=== PATIENT | female | born 1950 | race Caucasian/White ===

== ENCOUNTER 2019-07-12 21:28 | Inpatient (IN) ==
[2019-07-12] MEDS ORDERED: DOCUSATE SODIUM 100 MG CAPSULE PO PRN (23:24)
[2019-07-12] MEDS ORDERED: ONDANSETRON 4 MG/2 ML VIAL IV PRN (23:24)
[2019-07-12] MEDS ORDERED: ACETAMINOPHEN 325 MG TABLET PO PRN (23:24)
[2019-07-12] MEDS: SODIUM CHLORIDE 0.9% 1,000 ML IV SCH (23:58)
[2019-07-13] MEDS ORDERED: GLUCAGON 1 MG VIAL IM PRN
[2019-07-13] MEDS ORDERED: DEXTROSE 50% 25 GM/50 ML VIAL IV PRN
[2019-07-13] MEDS: INSULIN LISPRO 100 UNIT/ML SUBCUT SCH ×4 (01:12→18:47)
[2019-07-13 05:44] LABS: Basophils # 0.1 10*3/uL (0.0-0.2); Basophils % 0.3 % (0.0-0.8); Eosinophils # 0.1 10*3/uL (0.0-0.87); Eosinophils % 0.6 % (0.00-10.9); Hematocrit 32.6 VOL% (35.7-47.0); Hemoglobin 10.3 GM/DL (12.0-16.0); Immature Granulocytes % 0.6 %; Immature Granulocytes Absolute 0.08 #; Lymphocytes # 1.8 10*3/uL (1.4-4.0); Lymphocytes % 12.4 % (21.3-54.2); Mean Corpuscular HGB Conc 31.6 GM/DL (32-36); Mean Corpuscular Volume 98.8 FL (87-102); Mean Platelet Volume 10.6 FL (9.6-12.0); Monocytes % 10.5 % (1.7-12.7); Neutrophils % 75.6 % (38.7-73.9); Platelet Count 197 T/CUMM (130-400); Red Cell Distribution Width 16.2 % (9.3-17.3); White Blood Count 14.3 T/CUMM (4-12)
[2019-07-13 06:26] LABS: Albumin 2.8 G/DL (3.4-5.0); Bilirubin,Total 0.7 MG/DL (0.2-1.0); Calcium 9.3 MG/DL (8.5-10.1); Osmolality,Calculated 289.5 MOS/KG (273-304); Total Protein 6.4 G/DL (6.4-8.3)
[2019-07-13] MEDS ORDERED: ceFAZolin 1,000 MG in SYRINGE 1 EACH IV ONE (06:43)
[2019-07-14] MEDS: INSULIN LISPRO 100 UNIT/ML SUBCUT SCH ×5 (00:58→23:59)
[2019-07-14] MEDS: SODIUM CHLORIDE 0.9% 1,000 ML IV SCH ×2 (05:04→16:02)
[2019-07-14 06:20] LABS: Basophils # 0.1 10*3/uL (0.0-0.2); Basophils % 0.4 % (0.0-0.8); Eosinophils # 0.1 10*3/uL (0.0-0.87); Eosinophils % 1.1 % (0.00-10.9); Hematocrit 28.8 VOL% (35.7-47.0); Hemoglobin 9.1 GM/DL (12.0-16.0); Immature Granulocytes % 0.5 %; Immature Granulocytes Absolute 0.06 #; Lymphocytes # 1.8 10*3/uL (1.4-4.0); Lymphocytes % 14.6 % (21.3-54.2); Mean Corpuscular HGB Conc 31.6 GM/DL (32-36); Mean Platelet Volume 10.9 FL (9.6-12.0); Monocytes % 12.9 % (1.7-12.7); Neutrophils % 70.5 % (38.7-73.9); Platelet Count 175 T/CUMM (130-400); Red Blood Count 2.91 MC/CUMM (3.8-5.5); Red Cell Distribution Width 16.1 % (9.3-17.3); White Blood Count 12.3 T/CUMM (4-12)
[2019-07-14] MEDS ORDERED: ceFAZolin 1,000 MG in SYRINGE 1 EACH IV ONE (06:30)
[2019-07-14 06:38] LABS: Calcium 8.8 MG/DL (8.5-10.1); Osmolality,Calculated 282.4 MOS/KG (273-304)
[2019-07-14] MEDS ORDERED: BACITRACIN OINT 0.9 GM PACK TOP ONE ×2 (11:32→11:47)
[2019-07-14] MEDS ORDERED: MAGNESIUM HYDROXIDE SUSP 30 ML UDCUP PO PRN (12:00)
[2019-07-14] MEDS ORDERED: BUPIVACAINE 0.5% 50 ML VIAL ONE (12:04)
[2019-07-14] MEDS ORDERED: DEXAMETHASONE 4 MG/1 ML VIAL ONE (12:04)
[2019-07-14] MEDS ORDERED: PROPOFOL 200 MG/20 ML VIAL IV ONE (12:23)
[2019-07-14] MEDS ORDERED: PHENYLEPHRINE DRIP 20 MG/250 ML PREMIX IV ONE (12:23)
[2019-07-14] MEDS ORDERED: SEVOFLURANE 1 UNIT/15 MINUTE INH ONE (12:23)
[2019-07-14] MEDS ORDERED: NEOSTIGMINE 10 MG/10 ML VIAL ONE (12:24)
[2019-07-14] MEDS ORDERED: ETOMIDATE 40 MG/20 ML VIAL IV ONE (12:24)
[2019-07-14] MEDS ORDERED: fentaNYL 100 MCG/2 ML VIAL ONE (12:24)
[2019-07-14] MEDS ORDERED: ROCURONIUM 100 MG/10 ML VIAL IV ONE (12:24)
[2019-07-14] MEDS ORDERED: GLYCOPYRROLATE 0.4 MG/2 ML VIAL ONE (12:24)
[2019-07-14] MEDS ORDERED: PHENYLEPHRINE 1 MG/10 ML SYRINGE IV ONE (12:24)
[2019-07-14] MEDS ORDERED: SODIUM CHLORIDE 0.9% 250 ML IV ONE ×2 (12:40→12:56)
[2019-07-14] MEDS ORDERED: PHENYLEPHRINE DRIP 40 MG/250 ML PREMIX IV ONE (13:01)
[2019-07-14] MEDS ORDERED: SODIUM CHLORIDE 0.9% IV PRN (13:04)
[2019-07-14] MEDS ORDERED: PHENYLEPHRINE IV PRN (13:04)
[2019-07-14 13:23] LABS: Hematocrit 25.4 VOL% (35.7-47.0)
[2019-07-14] MEDS ORDERED: ALBUMIN 25% 25 GM in PREMIX 1 EACH IV ONE (13:54)
[2019-07-14] MEDS ORDERED: ALBUMIN 25% 25 GM/100 ML VIAL IV ONE (13:59)
[2019-07-14] MEDS: HYDROmorphone 2 MG/1 ML VIAL IV PRN ×2 (15:58→20:33)
[2019-07-14] MEDS ORDERED: FUROSEMIDE 40 MG/4 ML VIAL IV PRN (17:42)
[2019-07-14] MEDS ORDERED: SODIUM CHLORIDE 0.9% 1,000 ML IV PRN (17:42)
[2019-07-14] MEDS: ceFAZolin 1,000 MG in SYRINGE 1 EACH IV SCH ×2 (18:20→23:59)
[2019-07-14] MEDS ORDERED: EPINEPHrine 1 MG/ML VIAL ONE (22:06)
[2019-07-15] MEDS: HYDROmorphone 2 MG/1 ML VIAL IV PRN ×3 (00:15→09:41)
[2019-07-15 05:08] LABS: Basophils # 0.1 10*3/uL (0.0-0.2); Basophils % 0.3 % (0.0-0.8); Hematocrit 31.4 VOL% (35.7-47.0); Hemoglobin 9.8 GM/DL (12.0-16.0); Immature Granulocytes % 0.7 %; Immature Granulocytes Absolute 0.12 #; Lymphocytes # 1.6 10*3/uL (1.4-4.0); Mean Corpuscular HGB Conc 31.2 GM/DL (32-36); Mean Corpuscular Volume 97.5 FL (87-102); Mean Platelet Volume 10.8 FL (9.6-12.0); Monocytes % 14.7 % (1.7-12.7); Neutrophils % 75.3 % (38.7-73.9); Platelet Count 186 T/CUMM (130-400); Red Blood Count 3.22 MC/CUMM (3.8-5.5); Red Cell Distribution Width 15.9 % (9.3-17.3); White Blood Count 17.6 T/CUMM (4-12)
[2019-07-15 05:31] LABS: Calcium 9.2 MG/DL (8.5-10.1); Osmolality,Calculated 294.1 MOS/KG (273-304)
[2019-07-15] MEDS: INSULIN LISPRO 100 UNIT/ML SUBCUT SCH ×3 (06:06→18:35)
[2019-07-15] MEDS: ASPIRIN 325 MG TABLET PO SCH (10:11)
[2019-07-15] MEDS: SODIUM CHLORIDE 0.9% 1,000 ML IV SCH ×2 (13:00→18:08)
[2019-07-15] MEDS: PHENYLEPHRINE DRIP 40 MG/250 ML PREMIX IV PRN (15:30)
[2019-07-15] MEDS ORDERED: DILTIAZEM CD 120 MG CAPSULE PO SCH (16:04)
[2019-07-15] MEDS ORDERED: METOPROLOL TARTRATE 5 MG/5 ML VIAL IV PRN (16:47)
[2019-07-15 18:31] LABS: CKMB % 3.9 %
[2019-07-15 18:35] LABS: Troponin I 2.2 NG/ML (0.00-0.045)
[2019-07-15] MEDS ORDERED: ENOXAPARIN 60 MG/0.6 ML SYRINGE SUBCUT ONE (19:28)
[2019-07-15 21:33] LABS: CKMB % 3.4 %
[2019-07-15 21:35] LABS: Troponin I 2.29 NG/ML (0.00-0.045)
[2019-07-15] MEDS ORDERED: NITROGLYCERIN SL 0.4 MG TABLET SL PRN (21:37)
[2019-07-15] MEDS: MEMANTINE 10 MG TABLET PO SCH (21:57)
[2019-07-16 00:52] LABS: Basophils # 0.1 10*3/uL (0.0-0.2); Basophils % 0.4 % (0.0-0.8); Eosinophils # 0.2 10*3/uL (0.0-0.87); Eosinophils % 1.5 % (0.00-10.9); Hematocrit 25.8 VOL% (35.7-47.0); Hemoglobin 8.2 GM/DL (12.0-16.0); Immature Granulocytes % 0.6 %; Immature Granulocytes Absolute 0.07 #; Lymphocytes # 1.7 10*3/uL (1.4-4.0); Lymphocytes % 14.2 % (21.3-54.2); Mean Corpuscular HGB Conc 31.8 GM/DL (32-36); Mean Corpuscular Volume 97.7 FL (87-102); Mean Platelet Volume 10.6 FL (9.6-12.0); Monocytes % 13.8 % (1.7-12.7); Neutrophils % 69.5 % (38.7-73.9); Platelet Count 136 T/CUMM (130-400); Red Blood Count 2.64 MC/CUMM (3.8-5.5); Red Cell Distribution Width 15.6 % (9.3-17.3); White Blood Count 12.2 T/CUMM (4-12)
[2019-07-16] MEDS: INSULIN LISPRO 100 UNIT/ML SUBCUT SCH ×4 (01:08→18:29)
[2019-07-16] MEDS: clonazePAM 0.5 MG TABLET PO PRN ×2 (03:32→23:13)
[2019-07-16] MEDS: LEVOTHYROXINE 25 MCG TABLET PO SCH (06:10)
[2019-07-16] MEDS: SERTRALINE 50 MG TABLET PO SCH (09:00)
[2019-07-16] MEDS: ASPIRIN 325 MG TABLET PO SCH (09:00)
[2019-07-16] MEDS: MEMANTINE 10 MG TABLET PO SCH ×2 (09:00→20:14)
[2019-07-16] MEDS: SODIUM CHLORIDE 0.9% 1,000 ML IV SCH (09:00)
[2019-07-16 11:59] LABS: Hematocrit 26.9 VOL% (35.7-47.0); Hemoglobin 8.4 GM/DL (12.0-16.0)
[2019-07-16] MEDS: HYDROmorphone 2 MG/1 ML VIAL IV PRN (15:13)
[2019-07-17] MEDS: INSULIN LISPRO 100 UNIT/ML SUBCUT SCH ×4 (00:03→18:22)
[2019-07-17] MEDS: SODIUM CHLORIDE 0.9% 1,000 ML IV SCH ×2 (03:22→22:57)
[2019-07-17 05:06] LABS: Basophils # 0.1 10*3/uL (0.0-0.2); Basophils % 0.6 % (0.0-0.8); Eosinophils # 0.4 10*3/uL (0.0-0.87); Hematocrit 21.6 VOL% (35.7-47.0); Hemoglobin 6.7 GM/DL (12.0-16.0); Immature Granulocytes % 0.4 %; Immature Granulocytes Absolute 0.04 #; Lymphocytes # 1.7 10*3/uL (1.4-4.0); Lymphocytes % 18.3 % (21.3-54.2); Mean Corpuscular Volume 98.6 FL (87-102); Mean Platelet Volume 10.9 FL (9.6-12.0); Monocytes % 11.7 % (1.7-12.7); Platelet Count 151 T/CUMM (130-400); Red Blood Count 2.19 MC/CUMM (3.8-5.5); Red Cell Distribution Width 15.1 % (9.3-17.3); White Blood Count 9.3 T/CUMM (4-12)
[2019-07-17 05:40] LABS: Calcium 8.2 MG/DL (8.5-10.1); Osmolality,Calculated 285.4 MOS/KG (273-304)
[2019-07-17] MEDS: LEVOTHYROXINE 25 MCG TABLET PO SCH (05:57)
[2019-07-17 08:00] LABS: Basophils # 0.1 10*3/uL (0.0-0.2); Basophils % 0.5 % (0.0-0.8); Eosinophils # 0.3 10*3/uL (0.0-0.87); Eosinophils % 3.7 % (0.00-10.9); Hematocrit 24.9 VOL% (35.7-47.0); Hemoglobin 7.7 GM/DL (12.0-16.0); Immature Granulocytes % 0.4 %; Immature Granulocytes Absolute 0.04 #; Lymphocytes # 1.9 10*3/uL (1.4-4.0); Lymphocytes % 20.2 % (21.3-54.2); Mean Corpuscular HGB Conc 30.9 GM/DL (32-36); Mean Corpuscular Volume 98.8 FL (87-102); Mean Platelet Volume 10.8 FL (9.6-12.0); Monocytes % 12.6 % (1.7-12.7); Neutrophils % 62.6 % (38.7-73.9); Platelet Count 152 T/CUMM (130-400); Red Blood Count 2.52 MC/CUMM (3.8-5.5); Red Cell Distribution Width 15.3 % (9.3-17.3); White Blood Count 9.1 T/CUMM (4-12)
[2019-07-17] MEDS ORDERED: SODIUM CHLORIDE 0.9% 1,000 ML IV PRN (08:38)
[2019-07-17] MEDS: CARVEDILOL 3.125 MG TABLET PO SCH ×2 (10:16→18:12)
[2019-07-17] MEDS: AMIODARONE 200 MG TABLET PO SCH ×2 (10:16→20:34)
[2019-07-17] MEDS: ASPIRIN 325 MG TABLET PO SCH (10:16)
[2019-07-17] MEDS: MEMANTINE 10 MG TABLET PO SCH ×2 (10:16→20:35)
[2019-07-17] MEDS: SERTRALINE 50 MG TABLET PO SCH (10:16)
[2019-07-17] MEDS: clonazePAM 0.5 MG TABLET PO PRN (22:08)
[2019-07-18] MEDS: INSULIN LISPRO 100 UNIT/ML SUBCUT SCH ×4 (00:02→17:39)
[2019-07-18] MEDS: PHENYLEPHRINE DRIP 40 MG/250 ML PREMIX IV PRN (00:53)
[2019-07-18 05:40] LABS: Basophils # 0.1 10*3/uL (0.0-0.2); Basophils % 0.8 % (0.0-0.8); Eosinophils # 0.4 10*3/uL (0.0-0.87); Eosinophils % 4.5 % (0.00-10.9); Hematocrit 30.3 VOL% (35.7-47.0); Hemoglobin 9.5 GM/DL (12.0-16.0); Immature Granulocytes % 0.7 %; Immature Granulocytes Absolute 0.06 #; Lymphocytes # 1.9 10*3/uL (1.4-4.0); Lymphocytes % 21.8 % (21.3-54.2); Mean Corpuscular HGB Conc 31.4 GM/DL (32-36); Mean Corpuscular Volume 97.4 FL (87-102); Mean Platelet Volume 11.7 FL (9.6-12.0); Neutrophils % 59.2 % (38.7-73.9); Platelet Count 172 T/CUMM (130-400); Red Blood Count 3.11 MC/CUMM (3.8-5.5); Red Cell Distribution Width 15.1 % (9.3-17.3); White Blood Count 8.8 T/CUMM (4-12)
[2019-07-18 06:10] LABS: Calcium 8.6 MG/DL (8.5-10.1); Osmolality,Calculated 283.1 MOS/KG (273-304)
[2019-07-18] MEDS: LEVOTHYROXINE 25 MCG TABLET PO SCH (06:32)
[2019-07-18] MEDS: ASPIRIN 325 MG TABLET PO SCH (08:54)
[2019-07-18] MEDS: SERTRALINE 50 MG TABLET PO SCH (08:54)
[2019-07-18] MEDS: AMIODARONE 200 MG TABLET PO SCH ×2 (08:54→20:17)
[2019-07-18] MEDS: MEMANTINE 10 MG TABLET PO SCH ×2 (08:54→20:17)
[2019-07-18] MEDS: CARVEDILOL 3.125 MG TABLET PO SCH ×2 (08:54→17:25)
[2019-07-18] MEDS: clonazePAM 0.5 MG TABLET PO PRN ×2 (10:48→20:17)
[2019-07-18] MEDS: SODIUM CHLORIDE 0.9% 1,000 ML IV SCH ×2 (17:38→20:17)
[2019-07-19] MEDS: INSULIN LISPRO 100 UNIT/ML SUBCUT SCH ×4 (01:09→17:47)
[2019-07-19 05:22] LABS: Basophils # 0.1 10*3/uL (0.0-0.2); Basophils % 0.5 % (0.0-0.8); Eosinophils # 0.3 10*3/uL (0.0-0.87); Eosinophils % 3.3 % (0.00-10.9); Hematocrit 31.3 VOL% (35.7-47.0); Hemoglobin 9.8 GM/DL (12.0-16.0); Immature Granulocytes % 0.5 %; Immature Granulocytes Absolute 0.05 #; Lymphocytes # 1.8 10*3/uL (1.4-4.0); Lymphocytes % 17.7 % (21.3-54.2); Mean Corpuscular HGB Conc 31.3 GM/DL (32-36); Mean Corpuscular Volume 98.1 FL (87-102); Mean Platelet Volume 10.7 FL (9.6-12.0); Monocytes % 13.7 % (1.7-12.7); Neutrophils % 64.3 % (38.7-73.9); Platelet Count 201 T/CUMM (130-400); Red Blood Count 3.19 MC/CUMM (3.8-5.5); Red Cell Distribution Width 15.1 % (9.3-17.3); White Blood Count 9.9 T/CUMM (4-12)
[2019-07-19 05:58] LABS: Calcium 8.4 MG/DL (8.5-10.1); Osmolality,Calculated 291.3 MOS/KG (273-304)
[2019-07-19] MEDS: LEVOTHYROXINE 25 MCG TABLET PO SCH (06:19)
[2019-07-19] MEDS ORDERED: POTASSIUM CHLORIDE RIDER 10 MEQ in PREMIX 1 EACH IV PRN (06:30)
[2019-07-19] MEDS ORDERED: MAGNESIUM SULF RIDER 2 GM in PREMIX 1 EACH IV PRN (06:30)
[2019-07-19] MEDS ORDERED: diphenhydrAMINE CAP 25 MG CAPSULE PO ONE (06:30)
[2019-07-19] MEDS ORDERED: DIAZEPAM 5 MG TABLET PO ONE (06:30)
[2019-07-19] MEDS ORDERED: methylPREDNISolone SOD SUC 125 MG/2 ML VIAL IV ONE (06:44)
[2019-07-19] MEDS: MEMANTINE 10 MG TABLET PO SCH ×2 (08:01→21:55)
[2019-07-19] MEDS: ASPIRIN 325 MG TABLET PO SCH (08:01)
[2019-07-19] MEDS: AMIODARONE 200 MG TABLET PO SCH ×2 (08:01→21:55)
[2019-07-19] MEDS: CARVEDILOL 3.125 MG TABLET PO SCH ×2 (08:01→17:47)
[2019-07-19] MEDS: SERTRALINE 50 MG TABLET PO SCH (08:02)
[2019-07-19] MEDS ORDERED: MIDAZOLAM 2 MG/2 ML VIAL ONE (10:26)
[2019-07-19] MEDS ORDERED: fentaNYL 100 MCG/2 ML VIAL ONE (10:26)
[2019-07-19] MEDS ORDERED: VERAPAMIL 5 MG/2 ML VIAL ONE (10:26)
[2019-07-19] MEDS ORDERED: LIDOCAINE 1% 20 ML VIAL ONE (10:26)
[2019-07-19] MEDS ORDERED: NITROGLYCERIN DRIP 50 MG/250 ML BOTTLE IV ONE (10:26)
[2019-07-19] MEDS ORDERED: ENOXAPARIN 30 MG/0.3 ML SYRINGE ONE (10:45)
[2019-07-19] MEDS ORDERED: TIROFIBAN 5,000 MCG/100 ML PREMIX IV ONE (10:58)
[2019-07-19] MEDS ORDERED: TICAGRELOR 90 MG TABLET ONE (11:56)
[2019-07-19] MEDS ORDERED: TICAGRELOR 90 MG TABLET PO ONE (12:24)
[2019-07-19] MEDS ORDERED: TIROFIBAN 5,000 MCG/100 ML PREMIX IV SCH (12:30)
[2019-07-19] MEDS: TICAGRELOR 90 MG TABLET PO SCH (21:55)
[2019-07-19] MEDS: ATORVASTATIN 40 MG TABLET PO SCH (21:55)
[2019-07-19] MEDS: clonazePAM 0.5 MG TABLET PO PRN (21:56)
[2019-07-20] MEDS: INSULIN LISPRO 100 UNIT/ML SUBCUT SCH ×4 (00:40→18:25)
[2019-07-20] MEDS ORDERED: LORazepam 2 MG/1 ML VIAL IV ONE (02:17)
[2019-07-20] MEDS: HYDROmorphone 2 MG/1 ML VIAL IV PRN (04:51)
[2019-07-20 05:53] LABS: Basophils % 0.2 % (0.0-0.8); Hematocrit 35.7 VOL% (35.7-47.0); Hemoglobin 10.8 GM/DL (12.0-16.0); Immature Granulocytes % 0.3 %; Immature Granulocytes Absolute 0.03 #; Lymphocytes # 0.5 10*3/uL (1.4-4.0); Lymphocytes % 4.8 % (21.3-54.2); Mean Corpuscular HGB Conc 30.3 GM/DL (32-36); Mean Corpuscular Volume 101.1 FL (87-102); Mean Platelet Volume 11.5 FL (9.6-12.0); Monocytes % 5.3 % (1.7-12.7); Neutrophils % 89.4 % (38.7-73.9); Platelet Count 226 T/CUMM (130-400); Red Blood Count 3.53 MC/CUMM (3.8-5.5); Red Cell Distribution Width 14.8 % (9.3-17.3); White Blood Count 11.4 T/CUMM (4-12)
[2019-07-20 05:57] LABS: Calcium 8.6 MG/DL (8.5-10.1); Osmolality,Calculated 291.8 MOS/KG (273-304)
[2019-07-20 06:05] LABS: Blood Urea Nitrogen 45 MG/DL (7-18); Calcium 8.9 MG/DL (8.5-10.1); Glucose 221 MG/DL (74-106); HDL Cholesterol 36 MG/DL (40-60); Osmolality,Calculated 291.8 MOS/KG (273-304); Risk Ratio 3.53; Triglycerides 79 MG/DL (2-150); VLDL CHOLESTEROL 15.8 MG/DL
[2019-07-20 06:21] LABS: Band Neutrophils 3 % (0-10); Hypochromasia 1+; Lymphocytes 3 % (20-55); Macrocytosis 1+; Segmented Neutrophils 89 % (50-85); Total Cells Counted 100
[2019-07-20 06:22] LABS: Platelet Estimate Normal
[2019-07-20] MEDS: LEVOTHYROXINE 25 MCG TABLET PO SCH (06:32)
[2019-07-20] MEDS: ASPIRIN EC 81 MG TABLET PO SCH (09:31)
[2019-07-20] MEDS: AMIODARONE 200 MG TABLET PO SCH ×2 (09:31→21:37)
[2019-07-20] MEDS: SERTRALINE 50 MG TABLET PO SCH (09:31)
[2019-07-20] MEDS: MEMANTINE 10 MG TABLET PO SCH ×2 (09:31→21:38)
[2019-07-20] MEDS: TICAGRELOR 90 MG TABLET PO SCH ×2 (09:31→21:37)
[2019-07-20] MEDS: CARVEDILOL 3.125 MG TABLET PO SCH ×2 (09:37→18:25)
[2019-07-20] MEDS: FAMOTIDINE 20 MG/2 ML VIAL IV SCH (09:58)
[2019-07-20] MEDS ORDERED: SODIUM CHLORIDE 0.45% 1,000 ML IV SCH (10:00)
[2019-07-20] MEDS: methylPREDNISolone SOD SUC 125 MG/2 ML VIAL IV SCH ×3 (10:01→21:38)
[2019-07-20] MEDS: diphenhydrAMINE CAP 25 MG CAPSULE PO SCH ×3 (10:03→18:25)
[2019-07-20] MEDS: clonazePAM 0.5 MG TABLET PO PRN (21:38)
[2019-07-20] MEDS: ATORVASTATIN 40 MG TABLET PO SCH (21:38)
[2019-07-21] MEDS: INSULIN LISPRO 100 UNIT/ML SUBCUT SCH ×5 (00:16→21:18)
[2019-07-21] MEDS: diphenhydrAMINE CAP 25 MG CAPSULE PO SCH ×2 (00:16→06:18)
[2019-07-21] MEDS: methylPREDNISolone SOD SUC 125 MG/2 ML VIAL IV SCH ×4 (04:27→21:19)
[2019-07-21 05:46] LABS: Basophils % 0.1 % (0.0-0.8); Hematocrit 33.8 VOL% (35.7-47.0); Hemoglobin 10.8 GM/DL (12.0-16.0); Immature Granulocytes % 0.5 %; Immature Granulocytes Absolute 0.07 #; Lymphocytes # 0.4 10*3/uL (1.4-4.0); Lymphocytes % 2.9 % (21.3-54.2); Mean Platelet Volume 11.5 FL (9.6-12.0); Monocytes % 3.4 % (1.7-12.7); Neutrophils % 93.1 % (38.7-73.9); Platelet Count 284 T/CUMM (130-400); Red Blood Count 3.52 MC/CUMM (3.8-5.5); Red Cell Distribution Width 14.9 % (9.3-17.3); White Blood Count 14.5 T/CUMM (4-12)
[2019-07-21 06:13] LABS: Calcium 8.9 MG/DL (8.5-10.1); Osmolality,Calculated 288.8 MOS/KG (273-304)
[2019-07-21] MEDS: LEVOTHYROXINE 25 MCG TABLET PO SCH (06:18)
[2019-07-21 06:25] LABS: Anisocytosis 1+; Platelet Estimate Adequate
[2019-07-21] MEDS: SERTRALINE 50 MG TABLET PO SCH (08:45)
[2019-07-21] MEDS: TICAGRELOR 90 MG TABLET PO SCH ×2 (08:45→21:10)
[2019-07-21] MEDS: CARVEDILOL 6.25 MG TABLET PO SCH ×2 (08:45→21:10)
[2019-07-21] MEDS: MEMANTINE 10 MG TABLET PO SCH ×2 (08:45→21:10)
[2019-07-21] MEDS: ASPIRIN EC 81 MG TABLET PO SCH (08:45)
[2019-07-21] MEDS: AMIODARONE 200 MG TABLET PO SCH ×2 (08:46→21:10)
[2019-07-21] MEDS: FAMOTIDINE 20 MG/2 ML VIAL IV SCH (09:39)
[2019-07-21] MEDS ORDERED: diphenhydrAMINE CAP 25 MG CAPSULE PO SCH (21:00)
[2019-07-21] MEDS: ATORVASTATIN 40 MG TABLET PO SCH (21:10)
[2019-07-22 05:56] LABS: Basophils % 0.1 % (0.0-0.8); Hematocrit 31.8 VOL% (35.7-47.0); Hemoglobin 10.3 GM/DL (12.0-16.0); Immature Granulocytes % 0.5 %; Immature Granulocytes Absolute 0.05 #; Lymphocytes # 0.3 10*3/uL (1.4-4.0); Mean Corpuscular HGB Conc 32.4 GM/DL (32-36); Mean Corpuscular Volume 94.9 FL (87-102); Mean Platelet Volume 11.7 FL (9.6-12.0); Monocytes % 3.2 % (1.7-12.7); Neutrophils % 93.2 % (38.7-73.9); Platelet Count 268 T/CUMM (130-400); Red Blood Count 3.35 MC/CUMM (3.8-5.5); Red Cell Distribution Width 14.7 % (9.3-17.3); White Blood Count 11.1 T/CUMM (4-12)
[2019-07-22 06:22] LABS: Hypochromasia 1+; Lymphocytes 1 % (20-55); Ovalocytes Slight; Platelet Estimate Adequate; Segmented Neutrophils 97 % (50-85); Total Cells Counted 100
[2019-07-22 06:28] LABS: Calcium 8.7 MG/DL (8.5-10.1)
[2019-07-22] MEDS: LEVOTHYROXINE 25 MCG TABLET PO SCH (06:37)
[2019-07-22] MEDS: INSULIN LISPRO 100 UNIT/ML SUBCUT SCH ×4 (08:40→21:47)
[2019-07-22] MEDS: CARVEDILOL 6.25 MG TABLET PO SCH ×2 (13:17→21:36)
[2019-07-22] MEDS: ASPIRIN EC 81 MG TABLET PO SCH (13:17)
[2019-07-22] MEDS: TICAGRELOR 90 MG TABLET PO SCH ×2 (13:18→21:36)
[2019-07-22] MEDS: SERTRALINE 50 MG TABLET PO SCH (13:18)
[2019-07-22] MEDS: AMIODARONE 200 MG TABLET PO SCH ×2 (13:18→21:36)
[2019-07-22] MEDS: MEMANTINE 10 MG TABLET PO SCH ×2 (13:19→21:36)
[2019-07-22] MEDS: INSULIN GLARGINE 100 UNIT/ML SUBCUT SCH (13:53)
[2019-07-22] MEDS: clonazePAM 0.5 MG TABLET PO PRN (16:59)
[2019-07-22] MEDS: ATORVASTATIN 40 MG TABLET PO SCH (21:36)
[2019-07-23 05:13] LABS: Basophils % 0.1 % (0.0-0.8); Eosinophils % 0.1 % (0.00-10.9); Hematocrit 33.6 VOL% (35.7-47.0); Hemoglobin 10.5 GM/DL (12.0-16.0); Immature Granulocytes % 0.4 %; Immature Granulocytes Absolute 0.05 #; Lymphocytes # 0.9 10*3/uL (1.4-4.0); Lymphocytes % 7.4 % (21.3-54.2); Mean Corpuscular HGB Conc 31.3 GM/DL (32-36); Mean Corpuscular Volume 95.2 FL (87-102); Mean Platelet Volume 11.5 FL (9.6-12.0); Monocytes % 9.9 % (1.7-12.7); Neutrophils % 82.1 % (38.7-73.9); Platelet Count 301 T/CUMM (130-400); Red Blood Count 3.53 MC/CUMM (3.8-5.5); Red Cell Distribution Width 14.7 % (9.3-17.3); White Blood Count 12.1 T/CUMM (4-12)
[2019-07-23 05:26] LABS: Calcium 8.2 MG/DL (8.5-10.1); Osmolality,Calculated 286.7 MOS/KG (273-304)
[2019-07-23] MEDS: LEVOTHYROXINE 25 MCG TABLET PO SCH (05:41)
[2019-07-23] MEDS: INSULIN LISPRO 100 UNIT/ML SUBCUT SCH ×2 (07:30→11:30)
[2019-07-23] MEDS ORDERED: AMIODARONE 200 MG TABLET PO SCH (09:00)
[2019-07-23] MEDS: ASPIRIN EC 81 MG TABLET PO SCH (09:31)
[2019-07-23] MEDS: MEMANTINE 10 MG TABLET PO SCH (09:31)
[2019-07-23] MEDS: SERTRALINE 50 MG TABLET PO SCH (09:33)
[2019-07-23] MEDS: INSULIN GLARGINE 100 UNIT/ML SUBCUT SCH (09:34)
[2019-07-23] MEDS: TICAGRELOR 90 MG TABLET PO SCH (09:36)
[2019-07-23] MEDS: CARVEDILOL 6.25 MG TABLET PO SCH (09:36)
[2019-07-23 12:05] VITALS: BP 108/58
== END 2019-07-23 13:27 | DRG 480 ==
LOC: N.ED 21:28 → N.EDINP 23:21 → SUATTDRO 23:21 → N.3E 23:53 → N.ICU 07-14 14:32 → N.3E 07-22 14:29
PROVIDERS: ADMIT Family Medicine; ATTEND Family Medicine
PROC: CLCCHCL (ICD-10-PCS; 2019-07-19 11:15)

== ENCOUNTER 2020-01-22 07:34 | Inpatient (IN) ==
[2020-01-22] MEDS ORDERED: ATROPINE 1 MG/10 ML SYRINGE ONE (07:59)
[2020-01-22] MEDS ORDERED: ATROPINE 1 MG/10 ML SYRINGE IV STA (08:00)
[2020-01-22] MEDS ORDERED: SODIUM CHLORIDE 0.9% 500 ML IV STA (08:01)
[2020-01-22] MEDS ORDERED: ALBUTEROL 2.5 MG/3 ML NEB RESP TX STA (08:05)
[2020-01-22] MEDS ORDERED: CALCIUM GLUCONATE 1,000 MG in SODIUM CHLORIDE 0.9% 100 ML IV ONE (08:05)
[2020-01-22] MEDS ORDERED: INSULIN REGULAR 100 UNIT/ML IV STA (08:06)
[2020-01-22] MEDS ORDERED: CALCIUM GLUCONATE 1,000 MG/10 ML VIAL IV ONE (08:10)
[2020-01-22] MEDS ORDERED: ATROPINE 1 MG/10 ML SYRINGE IV ONE (08:12)
[2020-01-22 08:25] LABS: Basophils # 0.1 10*3/uL (0.0-0.2); Basophils % 0.7 % (0.0-0.8); Eosinophils # 0.8 10*3/uL (0.0-0.87); Eosinophils % 8.3 % (0.00-10.9); Hematocrit 31.5 VOL% (35.7-47.0); Hemoglobin 9.5 GM/DL (12.0-16.0); Immature Granulocytes % 0.4 %; Immature Granulocytes Absolute 0.04 #; Lymphocytes # 1.1 10*3/uL (1.4-4.0); Mean Corpuscular HGB Conc 30.2 GM/DL (32-36); Mean Corpuscular Volume 97.5 FL (87-102); Neutrophils % 68.6 % (38.7-73.9); Platelet Count 123 T/CUMM (130-400); Red Blood Count 3.23 MC/CUMM (3.8-5.5); Red Cell Distribution Width 17.1 % (9.3-17.3); White Blood Count 9.9 T/CUMM (4-12)
[2020-01-22 08:29] LABS: ABG Base Excess -0.6 MMOL/L (-2.5-2.5); ABG HCO3 23.9 MMOL/L (20-26); ABG PCO2 46.3 MM HG (35-48); ABG PH 7.345 (7.35-7.45); ABG PO2 75.6 MM HG (80-95); ABG TCO2 23.4 MMOL/L (23-27); Allen Test Positive; Pt O2 Delivery Device Room Air
[2020-01-22 08:48] LABS: Calcium 9.8 MG/DL (8.5-10.1); Osmolality,Calculated 283.2 MOS/KG (273-304)
[2020-01-22] MEDS: DOPamine 800 MG/250 ML PREMIX IV PRN (08:50)
[2020-01-22] MEDS ORDERED: INSULIN GLARGINE 100 UNIT/ML SUBCUT STA (10:01)
[2020-01-22] MEDS ORDERED: LACTULOSE 20 GM/30 ML UDCUP PO PRN (11:41)
[2020-01-22] MEDS ORDERED: ONDANSETRON 4 MG/2 ML VIAL IV PRN (11:41)
[2020-01-22] MEDS ORDERED: PANTOPRAZOLE 40 MG TABLET PO SCH (11:41)
[2020-01-22] MEDS ORDERED: DOCUSATE SODIUM 100 MG CAPSULE PO PRN (11:41)
[2020-01-22 12:22] LABS: INR 1.2; PT Patient Result 13.3 SECS (9.6-12.2); Partial Thromboplastin Time 28.6 SECS (20.8-36.0)
[2020-01-22] MEDS: ENOXAPARIN 30 MG/0.3 ML SYRINGE SUBCUT SCH (13:21)
[2020-01-22] MEDS: OMEPRAZOLE ODT 20 MG TABLET PO SCH (13:21)
[2020-01-22] MEDS ORDERED: AMIODARONE INJ 150 MG in DEXTROSE 5% 100 ML IV PRN (15:26)
[2020-01-22] MEDS ORDERED: AMIODARONE INJ 450 MG in DEXTROSE 5% 241 ML IV PRN ×2 (15:26→21:30)
[2020-01-22] MEDS: DONEPEZIL 5 MG TABLET PO SCH (21:44)
[2020-01-22] MEDS: ALBUTEROL/IPRATROPIUM 3 ML NEB RESP TX SCH (22:52)
[2020-01-23] MEDS ORDERED: FUROSEMIDE 20 MG/2 ML VIAL IV ONE (00:10)
[2020-01-23] MEDS: ALBUTEROL/IPRATROPIUM 3 ML NEB RESP TX SCH ×6 (03:10→22:58)
[2020-01-23 04:16] LABS: Apearance,Urine CLOUDY (Clear); Bacteria,Urine Few /HPF (Few); Bilirubin,Urine Negative (Negative); Blood, Urine Moderate mg/dL (Negative); Glucose,Urine (UA) Negative (Negative); Ketones,Urine Negative (Negative); Mucus,Urine Occasional /LPF (Occasional); Nitrite,Urine Negative (Negative); Protein,Urine 100 MG/DL; RBC,Urine 437 /HPF (0-4); Squamous Epithelial Cell,Urine Many /HPF (0-10); Urine Specific Gravity 1.012 (1.001-1.035); Urine Urobilinogen < 2.0 EU/DL (0.2-1.0); WBC,Urine 3255 /HPF (0-6)
[2020-01-23 04:17] LABS: Urine Color Yellow (Yellow)
[2020-01-23] MEDS ORDERED: AMINO ACIDS PROTEIN HYDROLYS PO SCH (05:00)
[2020-01-23] MEDS ORDERED: GLUCAGON 1 MG VIAL IM PRN (06:10)
[2020-01-23] MEDS ORDERED: DEXTROSE 10% 250 ML BAG IV PRN (06:12)
[2020-01-23 06:13] LABS: Basophils % 0.3 % (0.0-0.8); Eosinophils # 0.1 10*3/uL (0.0-0.87); Eosinophils % 0.8 % (0.00-10.9); Hemoglobin 10.8 GM/DL (12.0-16.0); Immature Granulocytes % 0.6 %; Immature Granulocytes Absolute 0.07 #; Lymphocytes # 0.9 10*3/uL (1.4-4.0); Lymphocytes % 7.2 % (21.3-54.2); Mean Corpuscular HGB Conc 30.9 GM/DL (32-36); Mean Corpuscular Volume 94.3 FL (87-102); Mean Platelet Volume 12.8 FL (9.6-12.0); Monocytes % 8.6 % (1.7-12.7); Neutrophils % 82.5 % (38.7-73.9); Platelet Count 149 T/CUMM (130-400); Red Blood Count 3.71 MC/CUMM (3.8-5.5); Red Cell Distribution Width 16.7 % (9.3-17.3); White Blood Count 12.4 T/CUMM (4-12)
[2020-01-23 06:21] LABS: Calcium 10.4 MG/DL (8.5-10.1); Osmolality,Calculated 289.4 MOS/KG (273-304)
[2020-01-23 06:29] LABS: Troponin I 1.07 NG/ML (0.00-0.045)
[2020-01-23] MEDS: INSULIN GLARGINE 100 UNIT/ML SUBCUT SCH (06:41)
[2020-01-23] MEDS: LEVOTHYROXINE 50 MCG TABLET PO SCH (06:41)
[2020-01-23] MEDS: DOPamine 800 MG/250 ML PREMIX IV PRN (06:45)
[2020-01-23] MEDS ORDERED: TICAGRELOR 90 MG TABLET PO ONE (07:03)
[2020-01-23] MEDS ORDERED: ASPIRIN CHEW 81 MG TABLET PO ONE (07:04)
[2020-01-23] MEDS: OMEPRAZOLE ODT 20 MG TABLET PO SCH (08:05)
[2020-01-23] MEDS: ASPIRIN EC 81 MG TABLET PO SCH (08:06)
[2020-01-23] MEDS: ENOXAPARIN 30 MG/0.3 ML SYRINGE SUBCUT SCH (11:47)
[2020-01-23] MEDS: INSULIN REGULAR 100 UNIT/ML SUBCUT SCH ×2 (11:47→17:54)
[2020-01-23] MEDS: TICAGRELOR 90 MG TABLET PO SCH ×2 (14:00→21:05)
[2020-01-23] MEDS: SODIUM CHLORIDE 1 GM TABLET PER TUBE SCH ×2 (14:00→21:05)
[2020-01-23] MEDS: DONEPEZIL 5 MG TABLET PO SCH (21:05)
[2020-01-24] MEDS: DOPamine 800 MG/250 ML PREMIX IV PRN (02:39)
[2020-01-24] MEDS: ALBUTEROL/IPRATROPIUM 3 ML NEB RESP TX SCH ×6 (02:51→23:45)
[2020-01-24 04:19] LABS: Basophils % 0.3 % (0.0-0.8); Eosinophils # 0.4 10*3/uL (0.0-0.87); Eosinophils % 3.2 % (0.00-10.9); Hematocrit 32.3 VOL% (35.7-47.0); Hemoglobin 10.3 GM/DL (12.0-16.0); Immature Granulocytes % 0.6 %; Immature Granulocytes Absolute 0.07 #; Lymphocytes # 0.8 10*3/uL (1.4-4.0); Lymphocytes % 6.2 % (21.3-54.2); Mean Corpuscular HGB Conc 31.9 GM/DL (32-36); Mean Corpuscular Volume 92.8 FL (87-102); Mean Platelet Volume 12.7 FL (9.6-12.0); Monocytes % 9.6 % (1.7-12.7); Neutrophils % 80.1 % (38.7-73.9); Platelet Count 139 T/CUMM (130-400); Red Blood Count 3.48 MC/CUMM (3.8-5.5); Red Cell Distribution Width 16.7 % (9.3-17.3); White Blood Count 12.3 T/CUMM (4-12)
[2020-01-24 04:55] LABS: Osmolality,Calculated 290.8 MOS/KG (273-304); Prealbumin 12.3 MG/DL (20-40)
[2020-01-24] MEDS: INSULIN REGULAR 100 UNIT/ML SUBCUT SCH ×4 (06:16→17:53)
[2020-01-24] MEDS: LEVOTHYROXINE 50 MCG TABLET PO SCH (06:16)
[2020-01-24] MEDS: INSULIN GLARGINE 100 UNIT/ML SUBCUT SCH (06:17)
[2020-01-24] MEDS: ASPIRIN EC 81 MG TABLET PO SCH ×2 (09:18→09:22)
[2020-01-24] MEDS: SODIUM CHLORIDE 1 GM TABLET PER TUBE SCH (09:19)
[2020-01-24] MEDS: OMEPRAZOLE ODT 20 MG TABLET PO SCH (09:19)
[2020-01-24] MEDS: TICAGRELOR 90 MG TABLET PO SCH ×2 (09:19→21:12)
[2020-01-24] MEDS ORDERED: VANCOMYCIN INJ 500 MG in SODIUM CHLORIDE 0.9% 100 ML IV PRN (09:27)
[2020-01-24] MEDS ORDERED: VANCOMYCIN INJ 2,000 MG in SODIUM CHLORIDE 0.9% 500 ML IV ONE (10:30)
[2020-01-24] MEDS: cefTRIAXone 1,000 MG in SYRINGE 1 EACH IV SCH (11:50)
[2020-01-24] MEDS: AMIODARONE 200 MG TABLET PO SCH ×2 (11:50→21:12)
[2020-01-24] MEDS: ENOXAPARIN 30 MG/0.3 ML SYRINGE SUBCUT SCH (12:02)
[2020-01-24] MEDS: COLLAGENASE OINT 30 GM TUBE TOP SCH (18:22)
[2020-01-24] MEDS: ATORVASTATIN 40 MG TABLET PEG SCH (21:12)
[2020-01-24] MEDS: DONEPEZIL 5 MG TABLET PO SCH (21:12)
[2020-01-25] MEDS: INSULIN REGULAR 100 UNIT/ML SUBCUT SCH ×4 (01:06→17:00)
[2020-01-25] MEDS: ALBUTEROL/IPRATROPIUM 3 ML NEB RESP TX SCH ×5 (03:31→23:05)
[2020-01-25 04:40] LABS: Basophils # 0.1 10*3/uL (0.0-0.2); Basophils % 0.5 % (0.0-0.8); Eosinophils # 0.8 10*3/uL (0.0-0.87); Eosinophils % 8.3 % (0.00-10.9); Hematocrit 27.1 VOL% (35.7-47.0); Hemoglobin 8.4 GM/DL (12.0-16.0); Immature Granulocytes % 0.5 %; Immature Granulocytes Absolute 0.05 #; Lymphocytes # 0.6 10*3/uL (1.4-4.0); Lymphocytes % 6.7 % (21.3-54.2); Mean Corpuscular Volume 94.4 FL (87-102); Mean Platelet Volume 11.6 FL (9.6-12.0); Monocytes % 9.8 % (1.7-12.7); Neutrophils % 74.2 % (38.7-73.9); Platelet Count 133 T/CUMM (130-400); Red Blood Count 2.87 MC/CUMM (3.8-5.5); Red Cell Distribution Width 16.7 % (9.3-17.3); White Blood Count 9.1 T/CUMM (4-12)
[2020-01-25] MEDS: LEVOTHYROXINE 50 MCG TABLET PO SCH (05:55)
[2020-01-25] MEDS: INSULIN GLARGINE 100 UNIT/ML SUBCUT SCH (05:55)
[2020-01-25] MEDS: AMIODARONE 200 MG TABLET PO SCH ×2 (08:15→20:50)
[2020-01-25] MEDS: OMEPRAZOLE ODT 20 MG TABLET PO SCH (08:15)
[2020-01-25] MEDS: COLLAGENASE OINT 30 GM TUBE TOP SCH (08:15)
[2020-01-25] MEDS: TICAGRELOR 90 MG TABLET PO SCH ×2 (08:15→20:50)
[2020-01-25] MEDS: ASPIRIN EC 81 MG TABLET PO SCH (08:15)
[2020-01-25] MEDS ORDERED: VANCOMYCIN INJ 500 MG in SODIUM CHLORIDE 0.9% 100 ML IV ONE (08:30)
[2020-01-25] MEDS: cefTRIAXone 1,000 MG in SYRINGE 1 EACH IV SCH (08:45)
[2020-01-25] MEDS ORDERED: ALBUMIN 25% 12.5 GM in PREMIX 1 EACH IV ONE (10:53)
[2020-01-25] MEDS ORDERED: ALBUMIN 25% 25 GM in PREMIX 1 EACH IV ONE (10:56)
[2020-01-25] MEDS: ENOXAPARIN 30 MG/0.3 ML SYRINGE SUBCUT SCH (11:03)
[2020-01-25] MEDS: ATORVASTATIN 40 MG TABLET PEG SCH (20:50)
[2020-01-25] MEDS: DONEPEZIL 5 MG TABLET PO SCH (20:51)
[2020-01-26] MEDS: INSULIN REGULAR 100 UNIT/ML SUBCUT SCH ×4 (01:54→17:05)
[2020-01-26] MEDS: ALBUTEROL/IPRATROPIUM 3 ML NEB RESP TX SCH ×5 (02:15→20:42)
[2020-01-26 04:17] LABS: Basophils # 0.1 10*3/uL (0.0-0.2); Basophils % 0.8 % (0.0-0.8); Eosinophils # 1.1 10*3/uL (0.0-0.87); Eosinophils % 10.8 % (0.00-10.9); Hematocrit 29.8 VOL% (35.7-47.0); Hemoglobin 9.2 GM/DL (12.0-16.0); Immature Granulocytes % 0.3 %; Immature Granulocytes Absolute 0.03 #; Lymphocytes # 0.7 10*3/uL (1.4-4.0); Lymphocytes % 6.6 % (21.3-54.2); Mean Corpuscular HGB Conc 30.9 GM/DL (32-36); Mean Corpuscular Volume 95.5 FL (87-102); Mean Platelet Volume 11.5 FL (9.6-12.0); Monocytes % 8.9 % (1.7-12.7); Neutrophils % 72.6 % (38.7-73.9); Platelet Count 141 T/CUMM (130-400); Red Blood Count 3.12 MC/CUMM (3.8-5.5); Red Cell Distribution Width 17.1 % (9.3-17.3); White Blood Count 10.3 T/CUMM (4-12)
[2020-01-26] MEDS: INSULIN GLARGINE 100 UNIT/ML SUBCUT SCH (05:48)
[2020-01-26] MEDS: LEVOTHYROXINE 50 MCG TABLET PO SCH (05:49)
[2020-01-26] MEDS: OMEPRAZOLE ODT 20 MG TABLET PO SCH ×2 (10:13→21:55)
[2020-01-26] MEDS: AMIODARONE 200 MG TABLET PO SCH ×2 (10:13→21:55)
[2020-01-26] MEDS: ASPIRIN EC 81 MG TABLET PO SCH (10:13)
[2020-01-26] MEDS: TICAGRELOR 90 MG TABLET PO SCH ×2 (10:13→21:55)
[2020-01-26] MEDS: COLLAGENASE OINT 30 GM TUBE TOP SCH (10:14)
[2020-01-26] MEDS: ENOXAPARIN 30 MG/0.3 ML SYRINGE SUBCUT SCH (11:45)
[2020-01-26] MEDS: MEMANTINE 5 MG TABLET PO SCH ×2 (17:00→21:55)
[2020-01-26] MEDS: SERTRALINE 50 MG TABLET PEG SCH ×2 (17:00→21:56)
[2020-01-26] MEDS: SEVELAMER CARBONATE 800 MG TABLET PO SCH (17:00)
[2020-01-26] MEDS: DONEPEZIL 5 MG TABLET PO SCH (21:55)
[2020-01-26] MEDS: ATORVASTATIN 40 MG TABLET PEG SCH (21:55)
[2020-01-27] MEDS: ALBUTEROL/IPRATROPIUM 3 ML NEB RESP TX SCH ×7 (00:10→22:53)
[2020-01-27] MEDS: INSULIN REGULAR 100 UNIT/ML SUBCUT SCH ×4 (03:12→18:12)
[2020-01-27 06:35] LABS: Calcium 9.6 MG/DL (8.5-10.1); Osmolality,Calculated 284.1 MOS/KG (273-304); Prealbumin 13.7 MG/DL (20-40)
[2020-01-27] MEDS: LEVOTHYROXINE 50 MCG TABLET PO SCH (07:14)
[2020-01-27] MEDS: SEVELAMER CARBONATE 800 MG TABLET PO SCH ×3 (08:05→18:12)
[2020-01-27] MEDS: OMEPRAZOLE ODT 20 MG TABLET PO SCH ×2 (08:05→21:04)
[2020-01-27] MEDS: MEMANTINE 5 MG TABLET PO SCH ×2 (08:05→21:04)
[2020-01-27] MEDS: AMIODARONE 200 MG TABLET PO SCH ×2 (08:05→21:04)
[2020-01-27] MEDS: SERTRALINE 50 MG TABLET PEG SCH ×2 (08:05→21:04)
[2020-01-27] MEDS: ASPIRIN EC 81 MG TABLET PO SCH (08:05)
[2020-01-27] MEDS: TICAGRELOR 90 MG TABLET PO SCH ×2 (08:05→21:04)
[2020-01-27] MEDS: INSULIN GLARGINE 100 UNIT/ML SUBCUT SCH (09:45)
[2020-01-27] MEDS: COLLAGENASE OINT 30 GM TUBE TOP SCH (15:06)
[2020-01-27] MEDS: DONEPEZIL 5 MG TABLET PO SCH (21:04)
[2020-01-27] MEDS: ATORVASTATIN 40 MG TABLET PEG SCH (21:04)
[2020-01-28] MEDS: INSULIN REGULAR 100 UNIT/ML SUBCUT SCH ×4 (01:30→18:21)
[2020-01-28] MEDS: ALBUTEROL/IPRATROPIUM 3 ML NEB RESP TX SCH ×7 (02:58→23:45)
[2020-01-28 05:36] LABS: Basophils # 0.1 10*3/uL (0.0-0.2); Eosinophils # 1.2 10*3/uL (0.0-0.87); Hemoglobin 8.7 GM/DL (12.0-16.0); Immature Granulocytes % 0.4 %; Immature Granulocytes Absolute 0.04 #; Lymphocytes # 0.7 10*3/uL (1.4-4.0); Mean Corpuscular Volume 97.3 FL (87-102); Monocytes % 8.1 % (1.7-12.7); Neutrophils % 71.5 % (38.7-73.9); Platelet Count 142 T/CUMM (130-400); Red Blood Count 2.98 MC/CUMM (3.8-5.5); Red Cell Distribution Width 17.3 % (9.3-17.3); White Blood Count 10.3 T/CUMM (4-12)
[2020-01-28] MEDS: LEVOTHYROXINE 50 MCG TABLET PO SCH (05:58)
[2020-01-28 06:09] LABS: Eosinophils 11 % (0-10); Hypochromasia 1+; Lymphocytes 10 % (20-55); Ovalocytes Slight; Platelet Estimate Adequate; Segmented Neutrophils 74 % (50-85); Total Cells Counted 100
[2020-01-28] MEDS: SERTRALINE 50 MG TABLET PEG SCH ×2 (08:42→22:20)
[2020-01-28] MEDS: AMIODARONE 200 MG TABLET PO SCH ×2 (08:43→22:19)
[2020-01-28] MEDS: SEVELAMER CARBONATE 800 MG TABLET PO SCH ×3 (08:43→18:21)
[2020-01-28] MEDS: ASPIRIN EC 81 MG TABLET PO SCH (08:43)
[2020-01-28] MEDS: OMEPRAZOLE ODT 20 MG TABLET PO SCH ×2 (08:43→22:19)
[2020-01-28] MEDS: INSULIN GLARGINE 100 UNIT/ML SUBCUT SCH (08:43)
[2020-01-28] MEDS: TICAGRELOR 90 MG TABLET PO SCH ×2 (08:43→22:19)
[2020-01-28] MEDS: COLLAGENASE OINT 30 GM TUBE TOP SCH (08:44)
[2020-01-28] MEDS: AMINO ACIDS PROTEIN HYDROLYS PO SCH (08:44)
[2020-01-28] MEDS: MEMANTINE 5 MG TABLET PO SCH ×2 (08:44→22:19)
[2020-01-28] MEDS: ATORVASTATIN 40 MG TABLET PEG SCH (22:19)
[2020-01-28] MEDS: DONEPEZIL 5 MG TABLET PO SCH (22:20)
[2020-01-29] MEDS: INSULIN REGULAR 100 UNIT/ML SUBCUT SCH ×5 (02:12→23:49)
[2020-01-29] MEDS: ALBUTEROL/IPRATROPIUM 3 ML NEB RESP TX SCH ×5 (03:31→20:25)
[2020-01-29] MEDS: LEVOTHYROXINE 50 MCG TABLET PO SCH (05:44)
[2020-01-29 09:24] LABS: Basophils # 0.1 10*3/uL (0.0-0.2); Basophils % 0.9 % (0.0-0.8); Eosinophils % 16.1 % (0.00-10.9); Hematocrit 28.2 VOL% (35.7-47.0); Hemoglobin 8.9 GM/DL (12.0-16.0); Immature Granulocytes % 0.5 %; Immature Granulocytes Absolute 0.06 #; Lymphocytes % 7.9 % (21.3-54.2); Mean Corpuscular HGB Conc 31.6 GM/DL (32-36); Mean Platelet Volume 11.9 FL (9.6-12.0); Monocytes % 7.2 % (1.7-12.7); Neutrophils % 67.4 % (38.7-73.9); Platelet Count 143 T/CUMM (130-400); Red Cell Distribution Width 17.3 % (9.3-17.3); White Blood Count 12.1 T/CUMM (4-12)
[2020-01-29 09:30] LABS: Calcium 9.7 MG/DL (8.5-10.1); Osmolality,Calculated 281.7 MOS/KG (273-304)
[2020-01-29 11:36] LABS: Anisocytosis 1+; Eosinophils 5 % (0-10); Hypochromasia 1+; Lymphocytes 3 % (20-55); Ovalocytes Few; Polychromasia Slight; Segmented Neutrophils 85 % (50-85); Total Cells Counted 100
[2020-01-29 11:37] LABS: Platelet Estimate Adequate; Spherocytes 1+; Target Cells Slight
[2020-01-29] MEDS ORDERED: cefOXitin 1,000 MG in SODIUM CHLORIDE 0.9% 100 ML IV SCH (12:00)
[2020-01-29] MEDS: SEVELAMER CARBONATE 800 MG TABLET PO SCH ×2 (17:22→18:41)
[2020-01-29] MEDS: cefOXitin 1,000 MG in SYRINGE 1 EACH IV SCH ×2 (17:35→23:50)
[2020-01-29] MEDS: INSULIN GLARGINE 100 UNIT/ML SUBCUT SCH (18:39)
[2020-01-29] MEDS: ASPIRIN EC 81 MG TABLET PO SCH (18:39)
[2020-01-29] MEDS: AMIODARONE 200 MG TABLET PO SCH ×2 (18:39→20:43)
[2020-01-29] MEDS: TICAGRELOR 90 MG TABLET PO SCH ×2 (18:39→20:44)
[2020-01-29] MEDS: AMINO ACIDS PROTEIN HYDROLYS PO SCH (18:39)
[2020-01-29] MEDS: MEMANTINE 5 MG TABLET PO SCH ×2 (18:39→20:48)
[2020-01-29] MEDS: SERTRALINE 50 MG TABLET PEG SCH ×2 (18:40→20:43)
[2020-01-29] MEDS: OMEPRAZOLE ODT 20 MG TABLET PO SCH ×2 (18:40→20:44)
[2020-01-29] MEDS: COLLAGENASE OINT 30 GM TUBE TOP SCH (18:40)
[2020-01-29] MEDS: DOXYCYCLINE HYCLATE 100 MG CAPSULE PO SCH ×2 (18:41→20:44)
[2020-01-29] MEDS: DONEPEZIL 5 MG TABLET PO SCH (20:44)
[2020-01-29] MEDS: ATORVASTATIN 40 MG TABLET PEG SCH (20:44)
[2020-01-30] MEDS: ALBUTEROL/IPRATROPIUM 3 ML NEB RESP TX SCH ×6 (00:25→20:12)
[2020-01-30 05:30] LABS: Basophils # 0.1 10*3/uL (0.0-0.2); Eosinophils % 15.7 % (0.00-10.9); Hematocrit 28.6 VOL% (35.7-47.0); Hemoglobin 8.7 GM/DL (12.0-16.0); Immature Granulocytes % 0.4 %; Immature Granulocytes Absolute 0.05 #; Lymphocytes % 7.5 % (21.3-54.2); Mean Corpuscular HGB Conc 30.4 GM/DL (32-36); Mean Corpuscular Volume 96.3 FL (87-102); Mean Platelet Volume 11.8 FL (9.6-12.0); Monocytes % 8.4 % (1.7-12.7); Platelet Count 155 T/CUMM (130-400); Red Blood Count 2.97 MC/CUMM (3.8-5.5); Red Cell Distribution Width 17.4 % (9.3-17.3); White Blood Count 12.8 T/CUMM (4-12)
[2020-01-30] MEDS: INSULIN REGULAR 100 UNIT/ML SUBCUT SCH ×3 (05:34→17:44)
[2020-01-30] MEDS: LEVOTHYROXINE 50 MCG TABLET PO SCH (05:34)
[2020-01-30 06:36] LABS: Anisocytosis 1+; Band Neutrophils 2 % (0-10); Eosinophils 20 % (0-10); Lymphocytes 6 % (20-55); Segmented Neutrophils 68 % (50-85); Total Cells Counted 100
[2020-01-30 06:37] LABS: Ovalocytes 1+; Platelet Estimate Normal; Target Cells Few
[2020-01-30] MEDS: INSULIN GLARGINE 100 UNIT/ML SUBCUT SCH (08:22)
[2020-01-30] MEDS: TICAGRELOR 90 MG TABLET PO SCH ×2 (08:23→21:10)
[2020-01-30] MEDS: SERTRALINE 50 MG TABLET PEG SCH (08:23)
[2020-01-30] MEDS: DOXYCYCLINE HYCLATE 100 MG CAPSULE PO SCH (08:23)
[2020-01-30] MEDS: AMIODARONE 200 MG TABLET PO SCH ×2 (08:23→21:09)
[2020-01-30] MEDS: SEVELAMER CARBONATE 800 MG TABLET PO SCH ×3 (08:23→17:06)
[2020-01-30] MEDS: MEMANTINE 5 MG TABLET PO SCH ×2 (08:23→21:10)
[2020-01-30] MEDS: ASPIRIN EC 81 MG TABLET PO SCH (08:23)
[2020-01-30] MEDS: OMEPRAZOLE ODT 20 MG TABLET PO SCH ×2 (08:23→21:09)
[2020-01-30] MEDS: COLLAGENASE OINT 30 GM TUBE TOP SCH (08:24)
[2020-01-30] MEDS: cefOXitin 1,000 MG in SYRINGE 1 EACH IV SCH (09:13)
[2020-01-30] MEDS: AMINO ACIDS PROTEIN HYDROLYS PO SCH (09:18)
[2020-01-30] MEDS: ERTAPENEM 1,000 MG in SODIUM CHLORIDE 0.9% 100 ML IV SCH (10:24)
[2020-01-30] MEDS: DONEPEZIL 5 MG TABLET PO SCH (21:10)
[2020-01-31] MEDS: INSULIN REGULAR 100 UNIT/ML SUBCUT SCH ×4 (00:24→17:22)
[2020-01-31] MEDS: ALBUTEROL/IPRATROPIUM 3 ML NEB RESP TX SCH ×7 (00:30→23:06)
[2020-01-31 04:27] LABS: Basophils # 0.1 10*3/uL (0.0-0.2); Eosinophils # 1.6 10*3/uL (0.0-0.87); Eosinophils % 12.8 % (0.00-10.9); Hematocrit 28.2 VOL% (35.7-47.0); Hemoglobin 8.6 GM/DL (12.0-16.0); Immature Granulocytes % 0.6 %; Immature Granulocytes Absolute 0.07 #; Lymphocytes % 7.9 % (21.3-54.2); Mean Corpuscular HGB Conc 30.5 GM/DL (32-36); Mean Corpuscular Volume 97.2 FL (87-102); Mean Platelet Volume 11.9 FL (9.6-12.0); Monocytes % 8.5 % (1.7-12.7); Neutrophils % 69.2 % (38.7-73.9); Platelet Count 145 T/CUMM (130-400); Red Cell Distribution Width 17.2 % (9.3-17.3); White Blood Count 12.4 T/CUMM (4-12)
[2020-01-31 04:42] LABS: Risk Ratio 1.95; VLDL CHOLESTEROL 10.6 MG/DL
[2020-01-31 04:43] LABS: Calcium 9.4 MG/DL (8.5-10.1); Osmolality,Calculated 292.8 MOS/KG (273-304); Prealbumin 11.9 MG/DL (20-40)
[2020-01-31 04:56] LABS: Eosinophils 16 % (0-10); Hypochromasia 1+; Lymphocytes 9 % (20-55); Macrocytosis 1+; Segmented Neutrophils 70 % (50-85); Target Cells Slight; Total Cells Counted 100
[2020-01-31 04:57] LABS: Platelet Estimate Adequate
[2020-01-31] MEDS: LEVOTHYROXINE 50 MCG TABLET PO SCH (05:11)
[2020-01-31] MEDS: SEVELAMER CARBONATE 800 MG TABLET PO SCH ×3 (09:35→18:08)
[2020-01-31] MEDS: TICAGRELOR 90 MG TABLET PO SCH ×2 (09:36→21:48)
[2020-01-31] MEDS: ASPIRIN EC 81 MG TABLET PO SCH (09:36)
[2020-01-31] MEDS: INSULIN GLARGINE 100 UNIT/ML SUBCUT SCH (09:36)
[2020-01-31] MEDS: AMINO ACIDS PROTEIN HYDROLYS PO SCH (09:36)
[2020-01-31] MEDS: AMIODARONE 200 MG TABLET PO SCH ×2 (09:36→21:48)
[2020-01-31] MEDS: OMEPRAZOLE ODT 20 MG TABLET PO SCH ×2 (09:37→21:48)
[2020-01-31] MEDS: COLLAGENASE OINT 30 GM TUBE TOP SCH (09:37)
[2020-01-31] MEDS: MEMANTINE 5 MG TABLET PO SCH ×2 (09:37→21:48)
[2020-01-31] MEDS: ERTAPENEM 1,000 MG in SODIUM CHLORIDE 0.9% 100 ML IV SCH (09:49)
[2020-01-31] MEDS: DONEPEZIL 5 MG TABLET PO SCH (21:48)
[2020-02-01] MEDS: INSULIN REGULAR 100 UNIT/ML SUBCUT SCH ×4 (01:31→17:17)
[2020-02-01] MEDS: ALBUTEROL/IPRATROPIUM 3 ML NEB RESP TX SCH ×5 (02:58→18:03)
[2020-02-01] MEDS: LEVOTHYROXINE 50 MCG TABLET PO SCH (05:42)
[2020-02-01] MEDS: AMINO ACIDS PROTEIN HYDROLYS PO SCH (09:47)
[2020-02-01] MEDS: SEVELAMER CARBONATE 800 MG TABLET PO SCH ×3 (09:47→18:02)
[2020-02-01] MEDS: MEMANTINE 5 MG TABLET PO SCH ×2 (09:48→22:15)
[2020-02-01] MEDS: INSULIN GLARGINE 100 UNIT/ML SUBCUT SCH (09:48)
[2020-02-01] MEDS: COLLAGENASE OINT 30 GM TUBE TOP SCH (09:48)
[2020-02-01] MEDS: OMEPRAZOLE ODT 20 MG TABLET PO SCH ×2 (09:48→22:15)
[2020-02-01] MEDS: AMIODARONE 200 MG TABLET PO SCH ×2 (11:17→22:15)
[2020-02-01] MEDS: ERTAPENEM 1,000 MG in SODIUM CHLORIDE 0.9% 100 ML IV SCH (11:17)
[2020-02-01] MEDS: TICAGRELOR 90 MG TABLET PO SCH ×2 (11:17→22:15)
[2020-02-01] MEDS: ASPIRIN EC 81 MG TABLET PO SCH (11:18)
[2020-02-01] MEDS: DONEPEZIL 5 MG TABLET PO SCH (22:18)
[2020-02-02] MEDS: ALBUTEROL/IPRATROPIUM 3 ML NEB RESP TX SCH ×7 (00:24→23:53)
[2020-02-02] MEDS: INSULIN REGULAR 100 UNIT/ML SUBCUT SCH ×4 (00:37→17:25)
[2020-02-02 05:22] LABS: Basophils # 0.2 10*3/uL (0.0-0.2); Basophils % 1.6 % (0.0-0.8); Eosinophils # 2.3 10*3/uL (0.0-0.87); Eosinophils % 21.5 % (0.00-10.9); Hematocrit 28.7 VOL% (35.7-47.0); Hemoglobin 8.6 GM/DL (12.0-16.0); Immature Granulocytes % 0.4 %; Immature Granulocytes Absolute 0.04 #; Lymphocytes # 1.1 10*3/uL (1.4-4.0); Lymphocytes % 10.2 % (21.3-54.2); Monocytes % 8.7 % (1.7-12.7); Neutrophils % 57.6 % (38.7-73.9); Platelet Count 145 T/CUMM (130-400); Red Blood Count 2.96 MC/CUMM (3.8-5.5); Red Cell Distribution Width 17.4 % (9.3-17.3); White Blood Count 10.6 T/CUMM (4-12)
[2020-02-02 05:43] LABS: Eosinophils 23 % (0-10); Hypochromasia 1+; Lymphocytes 10 % (20-55); Segmented Neutrophils 62 % (50-85); Total Cells Counted 100
[2020-02-02 05:44] LABS: Macrocytosis 1+; Platelet Estimate Adequate; Polychromasia Slight
[2020-02-02 05:53] LABS: Calcium 9.4 MG/DL (8.5-10.1)
[2020-02-02] MEDS: LEVOTHYROXINE 50 MCG TABLET PO SCH (05:58)
[2020-02-02] MEDS: SEVELAMER CARBONATE 800 MG TABLET PO SCH ×3 (09:03→17:10)
[2020-02-02] MEDS: AMIODARONE 200 MG TABLET PO SCH ×2 (09:03→21:43)
[2020-02-02] MEDS: INSULIN GLARGINE 100 UNIT/ML SUBCUT SCH (09:03)
[2020-02-02] MEDS: TICAGRELOR 90 MG TABLET PO SCH ×2 (09:03→21:43)
[2020-02-02] MEDS: AMINO ACIDS PROTEIN HYDROLYS PO SCH (09:03)
[2020-02-02] MEDS: ASPIRIN EC 81 MG TABLET PO SCH (09:03)
[2020-02-02] MEDS: COLLAGENASE OINT 30 GM TUBE TOP SCH (09:04)
[2020-02-02] MEDS: OMEPRAZOLE ODT 20 MG TABLET PO SCH ×2 (09:04→21:43)
[2020-02-02] MEDS: MEMANTINE 5 MG TABLET PO SCH ×2 (09:04→21:43)
[2020-02-02] MEDS: ERTAPENEM 1,000 MG in SODIUM CHLORIDE 0.9% 100 ML IV SCH (09:31)
[2020-02-02] MEDS: DONEPEZIL 5 MG TABLET PO SCH (21:42)
[2020-02-03] MEDS: INSULIN REGULAR 100 UNIT/ML SUBCUT SCH ×4 (00:03→18:36)
[2020-02-03] MEDS: ALBUTEROL/IPRATROPIUM 3 ML NEB RESP TX SCH ×6 (03:35→23:40)
[2020-02-03 05:15] LABS: Basophils # 0.2 10*3/uL (0.0-0.2); Basophils % 1.5 % (0.0-0.8); Eosinophils # 2.3 10*3/uL (0.0-0.87); Eosinophils % 21.9 % (0.00-10.9); Hematocrit 27.1 VOL% (35.7-47.0); Hemoglobin 8.2 GM/DL (12.0-16.0); Immature Granulocytes % 0.3 %; Immature Granulocytes Absolute 0.03 #; Lymphocytes # 1.2 10*3/uL (1.4-4.0); Lymphocytes % 11.5 % (21.3-54.2); Mean Corpuscular HGB Conc 30.3 GM/DL (32-36); Mean Corpuscular Volume 96.4 FL (87-102); Mean Platelet Volume 12.6 FL (9.6-12.0); Monocytes % 7.9 % (1.7-12.7); Neutrophils % 56.9 % (38.7-73.9); Platelet Count 144 T/CUMM (130-400); Red Blood Count 2.81 MC/CUMM (3.8-5.5); Red Cell Distribution Width 17.3 % (9.3-17.3); White Blood Count 10.3 T/CUMM (4-12)
[2020-02-03] MEDS: LEVOTHYROXINE 50 MCG TABLET PO SCH (05:22)
[2020-02-03 05:38] LABS: Calcium 9.7 MG/DL (8.5-10.1); Osmolality,Calculated 283.4 MOS/KG (273-304)
[2020-02-03 05:48] LABS: Eosinophils 25 % (0-10); Hypochromasia 1+; Lymphocytes 11 % (20-55); Macrocytosis 1+; Segmented Neutrophils 59 % (50-85); Total Cells Counted 100
[2020-02-03 05:49] LABS: Platelet Estimate Adequate
[2020-02-03] MEDS: AMINO ACIDS PROTEIN HYDROLYS PO SCH (08:08)
[2020-02-03] MEDS: SEVELAMER CARBONATE 800 MG TABLET PO SCH ×3 (08:08→18:35)
[2020-02-03] MEDS: INSULIN GLARGINE 100 UNIT/ML SUBCUT SCH (08:09)
[2020-02-03] MEDS: ASPIRIN EC 81 MG TABLET PO SCH (08:09)
[2020-02-03] MEDS: MEMANTINE 5 MG TABLET PO SCH ×2 (08:09→20:30)
[2020-02-03] MEDS: TICAGRELOR 90 MG TABLET PO SCH (08:09)
[2020-02-03] MEDS: AMIODARONE 200 MG TABLET PO SCH ×2 (08:09→20:30)
[2020-02-03] MEDS: OMEPRAZOLE ODT 20 MG TABLET PO SCH ×2 (08:10→20:30)
[2020-02-03] MEDS: ERTAPENEM 1,000 MG in SODIUM CHLORIDE 0.9% 100 ML IV SCH (13:23)
[2020-02-03] MEDS: COLLAGENASE OINT 30 GM TUBE TOP SCH (13:24)
[2020-02-03 18:07] LABS: Hematocrit 29.6 VOL% (35.7-47.0)
[2020-02-03] MEDS: DEXTROSE 5% 1,000 ML IV SCH (18:35)
[2020-02-03] MEDS: DONEPEZIL 5 MG TABLET PO SCH (20:31)
[2020-02-04] MEDS: INSULIN REGULAR 100 UNIT/ML SUBCUT SCH ×4 (00:32→18:23)
[2020-02-04] MEDS: ALBUTEROL/IPRATROPIUM 3 ML NEB RESP TX SCH ×6 (03:49→23:53)
[2020-02-04] MEDS: LEVOTHYROXINE 50 MCG TABLET PO SCH (05:38)
[2020-02-04] MEDS: SEVELAMER CARBONATE 800 MG TABLET PO SCH ×4 (09:47→16:01)
[2020-02-04] MEDS: AMINO ACIDS PROTEIN HYDROLYS PO SCH ×2 (09:47→14:19)
[2020-02-04] MEDS: INSULIN GLARGINE 100 UNIT/ML SUBCUT SCH (09:48)
[2020-02-04] MEDS: AMIODARONE 200 MG TABLET PO SCH ×3 (09:48→22:47)
[2020-02-04] MEDS: OMEPRAZOLE ODT 20 MG TABLET PO SCH ×3 (09:48→22:47)
[2020-02-04] MEDS: MEMANTINE 5 MG TABLET PO SCH ×3 (09:48→22:47)
[2020-02-04] MEDS: COLLAGENASE OINT 30 GM TUBE TOP SCH (10:37)
[2020-02-04] MEDS ORDERED: DOCUSATE SODIUM 100 MG/10 ML UDCUP PER TUBE PRN (13:24)
[2020-02-04] MEDS: ERTAPENEM 500 MG in SODIUM CHLORIDE 0.9% 100 ML IV SCH (16:01)
[2020-02-04 17:39] LABS: Basophils # 0.1 10*3/uL (0.0-0.2); Basophils % 1.1 % (0.0-0.8); Eosinophils # 2.2 10*3/uL (0.0-0.87); Eosinophils % 20.5 % (0.00-10.9); Hematocrit 25.3 VOL% (35.7-47.0); Hemoglobin 7.6 GM/DL (12.0-16.0); Immature Granulocytes % 0.4 %; Immature Granulocytes Absolute 0.04 #; Lymphocytes % 9.2 % (21.3-54.2); Mean Corpuscular Volume 96.6 FL (87-102); Mean Platelet Volume 12.2 FL (9.6-12.0); Monocytes % 7.5 % (1.7-12.7); Neutrophils % 61.3 % (38.7-73.9); Platelet Count 148 T/CUMM (130-400); Red Blood Count 2.62 MC/CUMM (3.8-5.5); Red Cell Distribution Width 17.1 % (9.3-17.3); White Blood Count 10.6 T/CUMM (4-12)
[2020-02-04 17:57] LABS: Albumin 2.3 G/DL (3.4-5.0); Calcium 9.1 MG/DL (8.5-10.1); Osmolality,Calculated 276.4 MOS/KG (273-304); Total Protein 6.4 G/DL (6.4-8.3)
[2020-02-04 18:14] LABS: Eosinophils 22 % (0-10); Lymphocytes 5 % (20-55); Segmented Neutrophils 68 % (50-85); Total Cells Counted 100
[2020-02-04 18:15] LABS: Anisocytosis Slight; Macrocytosis Slight; Platelet Estimate Adequate
[2020-02-04] MEDS: DEXTROSE 5% 1,000 ML IV SCH (18:28)
[2020-02-04] MEDS: DONEPEZIL 5 MG TABLET PO SCH (22:47)
[2020-02-05] MEDS: INSULIN REGULAR 100 UNIT/ML SUBCUT SCH ×4 (01:40→17:46)
[2020-02-05] MEDS: ALBUTEROL/IPRATROPIUM 3 ML NEB RESP TX SCH ×5 (02:09→19:41)
[2020-02-05] MEDS: LEVOTHYROXINE 50 MCG TABLET PO SCH (05:59)
[2020-02-05 06:12] LABS: Basophils # 0.1 10*3/uL (0.0-0.2); Eosinophils # 2.3 10*3/uL (0.0-0.87); Eosinophils % 22.8 % (0.00-10.9); Hematocrit 23.7 VOL% (35.7-47.0); Hemoglobin 7.2 GM/DL (12.0-16.0); Immature Granulocytes % 0.3 %; Immature Granulocytes Absolute 0.03 #; Lymphocytes # 1.3 10*3/uL (1.4-4.0); Lymphocytes % 12.5 % (21.3-54.2); Mean Corpuscular HGB Conc 30.4 GM/DL (32-36); Monocytes % 7.5 % (1.7-12.7); Neutrophils % 55.9 % (38.7-73.9); Platelet Count 143 T/CUMM (130-400); Red Blood Count 2.47 MC/CUMM (3.8-5.5); Red Cell Distribution Width 17.2 % (9.3-17.3)
[2020-02-05 06:31] LABS: Eosinophils 27 % (0-10); Hypochromasia 2+; Lymphocytes 11 % (20-55); Ovalocytes Slight; Platelet Estimate Adequate; Segmented Neutrophils 59 % (50-85); Total Cells Counted 100
[2020-02-05 06:32] LABS: Macrocytosis Slight
[2020-02-05 06:51] LABS: Albumin 2.2 G/DL (3.4-5.0); Bilirubin,Total 0.5 MG/DL (0.2-1.0); Calcium 9.1 MG/DL (8.5-10.1); Osmolality,Calculated 278.1 MOS/KG (273-304); Total Protein 6.1 G/DL (6.4-8.3)
[2020-02-05] MEDS: MEMANTINE 5 MG TABLET PO SCH (10:40)
[2020-02-05] MEDS: INSULIN GLARGINE 100 UNIT/ML SUBCUT SCH (10:40)
[2020-02-05] MEDS: AMIODARONE 200 MG TABLET PO SCH (10:40)
[2020-02-05] MEDS: OMEPRAZOLE ODT 20 MG TABLET PO SCH (10:41)
[2020-02-05] MEDS: AMINO ACIDS PROTEIN HYDROLYS PO SCH (13:38)
[2020-02-05] MEDS: COLLAGENASE OINT 30 GM TUBE TOP SCH (16:02)
[2020-02-05] MEDS: ERTAPENEM 500 MG in SODIUM CHLORIDE 0.9% 100 ML IV SCH (17:30)
[2020-02-05 18:34] VITALS: BP 118/60
== END 2020-02-05 19:55 | DRG 871 ==
LOC: EDUNIT# → EDBD → N.ED 07:34 → SUPCPDRO 09:57 → N.EDINP 09:57 → SUATTDRO 09:57 → N.CC 10:33 → N.5E 01-26 15:55
PROVIDERS: ADMIT Internal Medicine; ATTEND Family Medicine